=== PATIENT | female | born 1955 | race Two or more races ===

== ENCOUNTER → 2020-07-08 | Outpatient (REF) | payer BC | LOC: M SMT 17:15 | PROVIDERS: ATTEND Urology | DX: N20.1 Calculus of ureter (principal) ==

== ENCOUNTER → 2020-07-10 | Outpatient (CLI) | payer BC | LOC: M LABSMTC 10:14 | PROVIDERS: ATTEND Anesthesiology | DX: Z20.828 Contact with and (suspected) exposure to other viral communicable diseases (principal); Z11.59 Encounter for screening for other viral diseases ==

== ENCOUNTER 2020-07-15 13:30 | Day surgery (SDC) | payer BC ==
[~2020-07-15] VITALS: Ht 162.6 cm; Wt 69.9 kg
[~2020-07-15 13:30] MED LIST: ACETAMINOPHEN 1000MG 100ML IV BTL (OFIRMEV) (J0131 PER 10MG) As Ordered ONE; ATEN100T PO; ECOT81TA5 PO; FARX1TAB3 PO; GLYB5TAB6; LIDOCAINE 2% 100MG/5ML SDV (FOR ANES.) As Ordered ONE; LR 1,000 ML IV ONE; METF10004 PO; MIDAZOLAM INJ 2MG/2ML VIAL (J2250 PER 1MG) As Ordered ONE; ONDANSETRON 4MG/2ML VIAL As Ordered ONE; OXYC1TAB23; PRAV20TA2 PO; TRAD5TAB PO; ceFAZolin SOD 2 GM in IV 1 EA IV ONE; dexameTHASONE 4 MG/ML 1ML VIAL (J1100 PER 1MG) As Ordered ONE; ePHEDrine SULFATE 25 MG/5 ML(5MG/ML) SYRINGE As Ordered ONE; fentaNYL 100 MCG/2 ML INJECTION (J3010) As Ordered ONE; propofoL 200 MG/20 ML VIAL As Ordered ONE
[2020-07-15] MEDS ORDERED: CONRAY-60 60% 50ML VIAL (Q9961) As Ordered ONE (13:32)
--- NOTE | 2020-07-15 15:06 | REP ---
INDICATION: LEFT STENT PLACEMENT. COMPARISON: None. TECHNIQUE: Intraoperative fluoroscopic imaging using C-arm technique FINDINGS: Final images demonstrate satisfactory left ureteral stent placement. Total fluoroscopic time 9 seconds. IMPRESSION: Satisfactory left ureteral stent placement. <Electronically signed by Eliseo Simpson > 07/15/20 [id number]
[2020-07-15] MEDS ORDERED: LR 1,000 ML IV SCH (15:25)
[2020-07-15] MEDS ORDERED: ONDANSETRON 4MG/2ML VIAL IV PRN (15:25)
[2020-07-15] MEDS ORDERED: METOCLOPRAMIDE INJ 10MG/2ML VIAL (J2765 PER 1) IV PRN (15:25)
[2020-07-15] MEDS ORDERED: PERCOCET 5MG/325MG TAB PO PRN ×2 (15:25→15:30)
[2020-07-15] MEDS ORDERED: fentaNYL 100 MCG/2 ML INJECTION (J3010) IV PRN (15:25)
--- NOTE | 2020-07-15 15:28 | RO ---
OPERATIVE NOTE DATE OF OPERATION: 07/15/2020 PREOPERATIVE DIAGNOSIS: Obstructing left ureteral stone. POSTOPERATIVE DIAGNOSIS: Obstructing left ureteral stone. PROCEDURES: Cystoscopy, left ureteroscopy with laser lithotripsy and basket retraction of stones, left retrograde pyelogram with intraoperative interpretive images, left ureteral stent placement. SURGEON: Singh Voss MD. TECHNICAL ADMINISTRATIVE ASSISTANT: None. ANESTHESIA: General. OPERATIVE INDICATIONS: This is a 64-year-old female who had an obstructing 8-9 mm left ureterovesical junction stone. She is brought to the operating room today for treatment. DESCRIPTION OF PROCEDURE: The patient is brought to the operating room and general anesthesia is induced. Prophylactic antibiotics were infused. She is placed in the dorsolithotomy position, prepped and draped in the usual sterile fashion. A rigid cystoscope was inserted into the urethral meatus and advanced to the bladder. A guidewire was advanced up the left collecting system. I then went up the left collecting system with a short semirigid ureteroscope and within the distal ureter, a 9 mm stone was seen. The stone was fragmented into smaller pieces using a 272 micron laser fiber. All of the fragments were then removed using a basket. I then examined the more proximal ureter and no additional stones were seen. At this point, a retrograde pyelogram was performed and it was notable for moderate left hydroureteronephrosis with no extravasation. I then withdrawal the ureteroscope and once again, no other stones were seen inside the ureter. I then utilized the guidewire to advance a 6-Icelandic x 22-32 cm J-J ureteral stent up the left collecting system. The wire was removed and there were adequate curls of the stent in the left renal pelvis and in the bladder. The bladder was emptied of all fluids and this marked conclusion of the procedure. The patient was taken out of the dorsolithotomy position, awakened from anesthesia, and transported to the recovery room in stable condition. ESTIMATED BLOOD LOSS: 5 mL. COMPLICATIONS: None. SPECIMENS: Kidney stone fragments. PLAN: The patient will follow-up in the urology clinic in a few weeks for stent removal. DOT
== END 2020-07-15 16:00 | disposition home or self-care (01) ==
LOC: M SDC 13:30
PROVIDERS: ATTEND Urology
DX: N20.1 Calculus of ureter (principal); E11.9 Type 2 diabetes mellitus without complications; I10 Essential (primary) hypertension; E78.5 Hyperlipidemia, unspecified; Z79.84 Long term (current) use of oral hypoglycemic drugs; Z79.899 Other long term (current) drug therapy; Z88.2 Allergy status to sulfonamides; Z88.8 Allergy status to other drugs, medicaments and biological substances
CPT/HCPCS: 52356; 74420; 82365; 88300; C1769; C2617; J0131; J0690; J1100; J2250; J2405; J3010; Q9961

== ENCOUNTER 2022-03-22 06:05 | Day surgery (SDC) | payer BC ==
[~2022-03-22] VITALS: Ht 162.6 cm; Wt 67.5 kg
[~2022-03-22 06:05] MED LIST changes: -ACETAMINOPHEN 1000MG 100ML IV BTL (OFIRMEV) (J0131 PER 10MG) As Ordered ONE; -LIDOCAINE 2% 100MG/5ML SDV (FOR ANES.) As Ordered ONE; -LR 1,000 ML IV ONE; -MIDAZOLAM INJ 2MG/2ML VIAL (J2250 PER 1MG) As Ordered ONE; -ONDANSETRON 4MG/2ML VIAL As Ordered ONE; +RAMI1CAP22 PO; +SEMA7TAB2 PO; -dexameTHASONE 4 MG/ML 1ML VIAL (J1100 PER 1MG) As Ordered ONE; -ePHEDrine SULFATE 25 MG/5 ML(5MG/ML) SYRINGE As Ordered ONE; -fentaNYL 100 MCG/2 ML INJECTION (J3010) As Ordered ONE; -propofoL 200 MG/20 ML VIAL As Ordered ONE
[2022-03-22] MEDS ORDERED: MIDAZOLAM INJ 2MG/2ML VIAL (J2250 PER 1MG) As Ordered ONE (07:07)
[2022-03-22] MEDS ORDERED: LIDOCAINE 2% 100MG/5ML SDV (FOR ANES.) As Ordered ONE (07:07)
[2022-03-22] MEDS ORDERED: fentaNYL 100 MCG/2 ML INJECTION As Ordered ONE (07:07)
[2022-03-22] MEDS ORDERED: KETOROLAC 60MG 2ML VIAL As Ordered ONE (07:07)
[2022-03-22] MEDS ORDERED: ONDANSETRON 4MG 2ML VIAL As Ordered ONE (07:07)
[2022-03-22] MEDS ORDERED: propofoL 200 MG/20 ML VIAL As Ordered ONE ×4 (07:07→07:54)
[2022-03-22] MEDS ORDERED: LR 1,000 ML IV SCH (07:10)
[2022-03-22] MEDS ORDERED: GLYCOPYRROLATE INJ 0.2 MG/ML 2 ML VIAL As Ordered ONE (07:13)
[2022-03-22] MEDS ORDERED: MORPHINE 2 MG/ML 1ML VIAL IV PRN (07:25)
[2022-03-22] MEDS ORDERED: METOCLOPRAMIDE INJ 10MG/2ML VIAL IV PRN (07:25)
[2022-03-22] MEDS ORDERED: ONDANSETRON 4MG 2ML VIAL IV PRN (07:25)
[2022-03-22] MEDS ORDERED: oxyCODONE 5MG TAB PO PRN (07:25)
[2022-03-22] MEDS ORDERED: OXYC1TAB23 PO (07:52)
[2022-03-22] MEDS ORDERED: FLOM0.4C39 PO (07:52)
[2022-03-22] MEDS ORDERED: ACETAMINOPHEN 1000MG 100ML IV BAG As Ordered ONE (07:54)
[2022-03-22 08:45] VITALS: BP 146/87
== END 2022-03-22 08:48 | disposition home or self-care (01) ==
LOC: M SDC 06:05
PROVIDERS: ATTEND Urology
DX: N20.0 Calculus of kidney (principal); I10 Essential (primary) hypertension; E11.9 Type 2 diabetes mellitus without complications; R51.9 Headache, unspecified; Z79.84 Long term (current) use of oral hypoglycemic drugs; Z79.899 Other long term (current) drug therapy
CPT/HCPCS: 50590; 74018; J0131; J0690; J1100; J2250; J2405; J3010